=== PATIENT | male | born 1990 | race Caucasian/White ===

== ENCOUNTER 2016-03-05 20:46 | Emergency (ER) | payer OTHER ==
[~2016-03-05] VITALS: Ht 180.3 cm; Wt 84.0 kg
[2016-03-05 20:48] VITALS: BP 127/82; PULSE 71; RESP 14; TEMP 97.6; O2SAT 98
== END 2016-03-05 22:10 | disposition left against medical advice (07) ==
LOC: EDSEX → NED 20:46
DX: R11.10 Vomiting, unspecified (principal)
CPT/HCPCS: 99281

== ENCOUNTER 2016-03-07 06:24 | Emergency (ER) | payer OTHER ==
[~2016-03-07] VITALS: Ht 180.3 cm; Wt 81.8 kg
[2016-03-07 06:58] VITALS: BP 129/58; PULSE 65; RESP 18; TEMP 97.8; O2SAT 99
[2016-03-07] MEDS ORDERED: ONDANSETRON HCL 4 MG/2 ML VIAL ONE ×2 (06:58→08:56)
[2016-03-07] MEDS ORDERED: GABA300C5 PO (07:06)
[2016-03-07] MEDS ORDERED: QUET1TAB9 PO (07:06)
[2016-03-07] MEDS ORDERED: SODIUM CHLOR 0.9% 1000 ML INJ 1,000 ML IV SCH (07:08)
[2016-03-07] MEDS ORDERED: KETOROLAC TROMETHAMINE 30 MG/ML (IVP) VIAL IVP ONE (07:15)
[2016-03-07] MEDS ORDERED: LIDOCAINE VISCOUS 2% SOLN 15 ML UDC PO ONE (07:15)
[2016-03-07] MEDS ORDERED: ONDANSETRON HCL 4 MG/2 ML VIAL IVP ONE (07:15)
[2016-03-07] MEDS ORDERED: SODIUM CHLORIDE 0.9% FLUSH 5 ML FLUSH IVF PRN (07:15)
[2016-03-07] MEDS ORDERED: ALUMINUM/MAGNESIUM/SIMETH 30 ML CUP PO ONE (07:15)
[2016-03-07] MEDS ORDERED: PANTOPRAZOLE SODIUM 40 MG VIAL IVP ONE (07:15)
[2016-03-07 07:43] LABS: AUTOMATED NEUTROPHIL # 10.2 TH/MM3 (1.8-7.7); BASOPHIL % 0.2 % (0.0-2.0); EOSINOPHIL % 0.1 % (0.0-4.0); HEMATOCRIT 50.4 % (39.0-51.0); HEMO FLAGS DIFF FINAL; LYMPHOCYTE # 1.6 TH/MM3 (1.0-4.8); MEAN CELL VOLUME 88.3 FL (80.0-100.0); MEAN CORPUSCULAR HEMOGLOBIN 30.4 PG (27.0-34.0); MEAN CORPUSCULAR HGB CONC 34.4 % (32.0-36.0); NEUT % 76.7 % (16.0-70.0); PLATELET COUNT 272 TH/MM3 (150-450); WHITE BLOOD COUNT 13.3 TH/MM3 (4.0-11.0)
[2016-03-07 07:57] VITALS: BP 126/74; PULSE 61; RESP 13; O2SAT 100
[2016-03-07 08:02] LABS: ALT (GPT) 26 U/L (12-78); ANION GAP 8 MEQ/L (5-15); AST (GOT) 15 U/L (15-37); BICARBONATE 29.2 MEQ/L (21.0-32.0); BLOOD UREA NITROGEN 24 MG/DL (7-18); CHLORIDE 97 MEQ/L (98-107); GLOMERULAR FILTRATION RATE 61 ML/MIN (>89); POTASSIUM 3.8 MEQ/L (3.5-5.1); SODIUM (NA) 134 MEQ/L (136-145)
[2016-03-07 08:04] LABS: ALKALINE PHOSPHATASE 106 U/L (45-117); TOTAL BILIRUBIN ADULT 1.2 MG/DL (0.2-1.0)
--- NOTE | 2016-03-07 08:13 | PD ---
HPI Chief Complaint: GI Complaint Time Seen by Provider: 07:07 Travel History International Travel<30 days: No Contact w/Intl Traveler<30days: No Traveled to known affect area: No History of Present Illness HPI Healthy 25-year-old male with history of gastritis here with complaint of 3 days of epigastric discomfort, intractable nausea and vomiting. Patient notes burning epigastric pain that radiates up into the chest with an acidic taste in the posterior pharynx. Intractable nausea and vomiting, no hematemesis. One episode of loose stool but no consistent diarrhea. He has a history of endoscopy proven gastritis. He was hospitalized at [place] in [facility] approximately 3 months ago for a 2 week duration with epigastric discomfort and intractable nausea and vomiting. He had an endoscopy at that time without evidence of peptic ulcer disease. He was discharged with 2 weeks of antacid, and then did not get it refilled. He is now only on medications for his PTSD. Patient admits to smoking marijuana approximately every 2-3 days. States it warm shower typically is very helpful with his symptoms. PFSH Past Medical History Depression: Yes Diminished Hearing: No Medical other: Yes (PTSD) Immunizations Current: Yes Influenza Vaccination: Yes Social History Alcohol Use: No Tobacco Use: Yes (1 PACK PER MONTH) Substance Use: Yes (MARIJUANA) Allergies-Medications (Allergen,Severity, Reaction): Coded Allergies: No Known Allergies (Unverified , 03/07/16) Reported Meds & Prescriptions Reported Meds & Active Scripts Active Reported Quetiapine (Quetiapine Fumarate) 200 Mg Tab 250 Mg PO DAILY Gabapentin 300 Mg Cap 300 Mg PO BID Review of Systems Except as stated in HPI: all other systems reviewed are Neg Physical Exam Narrative GENERAL: Well-appearing male in position on his side in no acute distress SKIN: Warm and dry. HEAD: Normocephalic. EYES: No scleral icterus. No injection or drainage. ENT: Mucous membranes pink and moist. NECK: Supple CARDIOVASCULAR: Regular rate and rhythm. RESPIRATORY: No accessory muscle use. GASTROINTESTINAL: Abdomen soft, mild epigastric discomfort without reproducible tenderness to palpation. No rebound or guarding. MUSCULOSKELETAL: Normal gait NEUROLOGICAL: Awake and alert. Normal speech. PSYCHIATRIC: Appropriate mood and affect; insight and judgment normal. Data Data Last Documented VS Vital Signs Date Time Temp Pulse Resp B/P Pulse Ox O2 Delivery O2 Flow Rate FiO2 03/07/16 09:20 95 12 125/69 99 Room Air 03/07/16 06:58 97.8 Orders Complete Blood Count With Diff (03/07/16 07:08) Comprehensive Metabolic Panel (03/07/16 07:08) Lipase (03/07/16 07:08) Iv Access Insert/Monitor (03/07/16 07:08) Ecg Monitoring (03/07/16 07:08) Oximetry (03/07/16 07:08) Ondansetron Inj (Zofran Inj) (03/07/16 07:15) Pantoprazole Inj (Protonix Inj) (03/07/16 07:15) Sodium Chlor 0.9% 1000 Ml Inj (Ns 1000 M (03/07/16 07:08) Sodium Chloride 0.9% Flush (Ns Flush) (03/07/16 07:15) Ketorolac Inj (Toradol Inj) (03/07/16 07:15) Al-Mag Hy-Si 40-40-4 Mg/Ml Liq (Mag-Al P (03/07/16 07:15) Lidocaine 2% Viscous (Xylocaine 2% Visco (03/07/16 07:15) Ondansetron Inj (Zofran Inj) (03/07/16 06:58) Ondansetron Inj (Zofran Inj) (03/07/16 08:56) Diphenhydramine Inj (Benadryl Inj) (03/07/16 09:15) Metoclopramide Inj (Reglan Inj) (03/07/16 09:15) Labs Laboratory Tests Test 03/07/16 07:25 White Blood Count 13.3 TH/MM3 Red Blood Count 5.70 MIL/MM3 Hemoglobin 17.3 GM/DL Hematocrit 50.4 % Mean Corpuscular Volume 88.3 FL Mean Corpuscular Hemoglobin 30.4 PG Mean Corpuscular Hemoglobin 34.4 % Concent Red Cell Distribution Width 12.0 % Platelet Count 272 TH/MM3 Mean Platelet Volume 9.8 FL Neutrophils (%) (Auto) 76.7 % Lymphocytes (%) (Auto) 12.0 % Monocytes (%) (Auto) 11.0 % Eosinophils (%) (Auto) 0.1 % Basophils (%) (Auto) 0.2 % Neutrophils # (Auto) 10.2 TH/MM3 Lymphocytes # (Auto) 1.6 TH/MM3 Monocytes # (Auto) 1.5 TH/MM3 Eosinophils # (Auto) 0.0 TH/MM3 Basophils # (Auto) 0.0 TH/MM3 CBC Comment DIFF FINAL Differential Comment Sodium Level 134 MEQ/L Potassium Level 3.8 MEQ/L Chloride Level 97 MEQ/L Carbon Dioxide Level 29.2 MEQ/L Anion Gap 8 MEQ/L Blood Urea Nitrogen 24 MG/DL Creatinine 1.43 MG/DL Estimat Glomerular Filtration 61 ML/MIN Rate Random Glucose 118 MG/DL Calcium Level 9.9 MG/DL Total Bilirubin 1.2 MG/DL Aspartate Amino Transf 15 U/L (AST/SGOT) Alanine Aminotransferase 26 U/L (ALT/SGPT) Alkaline Phosphatase 106 U/L Total Protein 9.0 GM/DL Albumin 5.1 GM/DL Lipase 137 U/L MDM Medical Decision Making Medical Screen Exam Complete: Yes Emergency Medical Condition: Yes Medical Record Reviewed: Yes Differential Diagnosis 25-year-old male with history of gastritis, marijuana abuse here with 3 days of epigastric abdominal discomfort, nausea vomiting. Differential includes gastritis, peptic ulcer disease, pink otitis, hepatobiliary pathology, cyclic vomiting syndrome, cannabis hyperemesis. Narrative Course Patient placed on monitor, IV established and blood obtained. Given 1 L normal saline bolus, 4 mg Zofran, 30 mg Toradol, IV PPI and GI cocktail. CBC, CMP, lipase with mild leukocytosis 13.3 with hemoconcentration with hemoglobin of 17.3. Slight dehydration with BUN 24, creatinine 1.43. Total bilirubin only minimally elevated at 1.2. Patient still nauseous and treated with Benadryl, Reglan with improvement he was able to tolerate liquids. Will be discharged home with symptomatic treatment. Diagnosis Primary Impression: Gastritis Qualified Code: K29.00 - Acute gastritis without hemorrhage, unspecified gastritis type Additional Impression: Cannabinoid hyperemesis syndrome Referrals: Primary Care Physician call for appointment Additional Instructions: Antacid as prescribed. Nausea medications as needed. Follow-up with primary care provider to establish care. Cut back and or quit smoking marijuana to see if this helps symptoms. Med/Other Pt SpecificInfo: Prescription(s) given Scripts Metoclopramide (Reglan)10 Mg Tab10 Mg PO TID PRN (NAUSEA) #10 TAB Ref 0 Prov:Erinn Lisa MD 03/07/16 Ondansetron Odt (Zofran Odt)8 Mg Tab8 Mg SL Q8H PRN (NAUSEA OR VOMITING) #10 TAB Ref 0 Prov:Erinn Lisa MD 03/07/16 Pantoprazole (Protonix)40 Mg Tab40 Mg PO DAILY #30 TAB Ref 0 Prov:Erinn Lisa MD 03/07/16 Disposition: 01 DISCHARGE HOME Condition: Stable Erinn Lisa MD Mar 07, 2016 08:13
[2016-03-07] MEDS ORDERED: METOCLOPRAMIDE HCL 10 MG/2 ML VIAL IVP ONE (09:15)
[2016-03-07] MEDS ORDERED: diphenhydrAMINE HCL 50 MG/ML VIAL IVP ONE (09:15)
[2016-03-07 09:20] VITALS: BP 125/69; PULSE 95; RESP 12; O2SAT 99
[2016-03-07] MEDS ORDERED: ZOFR8TAB4 SL ×2 (10:01→10:10)
[2016-03-07] MEDS ORDERED: PROT40TA PO ×2 (10:01→10:10)
[2016-03-07] MEDS ORDERED: REGL10TA5 PO ×2 (10:01→10:10)
[2016-03-07] MEDS ORDERED: ONDANSETRON HCL 4 MG/2 ML VIAL IV PUSH ONE (10:15)
== END 2016-03-07 10:57 | disposition home or self-care (01) ==
LOC: NEPC 06:24
DX: K29.00 Acute gastritis without bleeding (principal); F17.210 Nicotine dependence, cigarettes, uncomplicated
CPT/HCPCS: 80053; 83690; 85025; 96361; 96374; 96375; 96376; 99284; C9113; J1200; J1885; J2405; J2765; J7030